=== PATIENT | male | born 1950 | race Caucasian/White ===

== ENCOUNTER → 2021-07-09 | Outpatient (CLI) | payer MEDICARE ==
[2021-07-09 19:32] LABS: RED CELL DISTRIBUTION WIDTH 20.5 % (11.5-14.5)
[2021-07-09 19:46] LABS: CARBON DIOXIDE 29.2 mmol/L (20.0-32)
== END | disposition home or self-care (01) ==
LOC: NPLAB 19:19
PROVIDERS: ATTEND Internal Medicine
DX: E87.6 Hypokalemia (principal)
CPT/HCPCS: 36415; 80053; 85027